=== PATIENT | female | born 1955 | race Caucasian/White ===

== ENCOUNTER 2017-10-25 08:34 | Outpatient (CLI) | payer OTHER | END 2017-10-25 08:35 | disposition home or self-care (01) | LOC: BICMAMMO 08:34 | PROVIDERS: ATTEND Family Medicine | DX: Z12.31 Encounter for screening mammogram for malignant neoplasm of breast (principal); E55.9 Vitamin D deficiency, unspecified; M81.0 Age-related osteoporosis without current pathological fracture; M85.89 Other specified disorders of bone density and structure, multiple sites | CPT/HCPCS: 77067; 77080 ==

== ENCOUNTER 2022-04-14 20:15 | Inpatient (IN) | payer MEDICARE, OTHER ==
[2022-04-14] MEDS ORDERED: Diltiazem 125 MG/25 ML ONE (20:19)
[2022-04-14] MEDS: Diltiazem 125 MG in Sodium Chloride 0.9% 100 ML IVPB SCH (20:36)
[2022-04-14 21:41] LABS: ALT (SGPT) 17 U/L (8-55); AST (SGOT) 22 U/L (5-34); Albumin 3.8 g/dL (3.4-4.8); Alkaline Phosphatase 84 U/L (40-110); Anion Gap 11 mmol/L (10-20); BUN (Urea Nitrogen) 9 mg/dL (9.8-20.1); Bilirubin, Total 0.4 mg/dL (0.2-1.2); Calc. Creatinine Clearance 0 mL/min (70-130); Calcium 10.2 mg/dL (7.8-10.44); Carbon Dioxide 22 mmol/L (23-31); Chloride 108 mmol/L (98-107); Estimated GFR 97; Globulin 2.8 g/dL (2.4-3.5); Glucose 99 mg/dL (80-115); Potassium 3.8 mmol/L (3.5-5.1); Protein, Total 6.6 g/dL (5.8-8.1); Sodium 137 mmol/L (136-145)
[2022-04-14 21:45] LABS: #Monocytes 0.7 thou/uL (0.11-0.59); #Neutrophils 5.9 thou/uL (1.40-6.50); %Basophils 0.3 % (0.0-1.0); %Eosinophils 0.3 % (0.0-10.0); %Lymphocytes 12.8 % (21.0-51.0); %Monocytes 9.1 % (0.0-10.0); %Neutrophils 77.5 % (42.0-75.0); Hemoglobin 12.3 g/dL (12.0-16.0); Mean Corpuscular HGB CONC 32.7 g/dL (32.0-36.0); Mean Corpuscular Hemoglobin 31.4 pg (27.0-31.0); Mean Corpuscular Volume 96.1 fl (78.0-98.0); Mean Platelet Volume 7.9 fL (7.4-10.4); Platelet Count 199 10x3/uL (130-400); RBC Distribution Width 11.6 % (11.5-14.5); Red Blood Cell (RBC) Count 3.91 mill/uL (4.20-5.40); White Blood Cell (WBC) Count 7.7 10x3/uL (4.8-10.8)
[2022-04-14 22:35] LABS: SARS-CoV-2 NAA Rapid Test Not Detected (NotDetected)
[2022-04-15] MEDS ORDERED: Acetaminophen 325 MG TAB PO PRN (01:09)
[2022-04-15] MEDS ORDERED: Ondansetron ODT 4 MG TAB PO PRN (01:09)
[2022-04-15] MEDS ORDERED: Ondansetron PF 4 MG/2 ML Vial IVP PRN (01:09)
[2022-04-15 02:05] LABS: Magnesium 1.5 mg/dL (1.6-2.6)
[2022-04-15] MEDS ORDERED: Magnesium 2 GM/50 ML(in water) 2 GM in Premix Bag 1 BAG IVPB SCH (02:15)
[2022-04-15] MEDS ORDERED: Electrolyte Replacement Protocol 1 EACH FS SCH (02:15)
[2022-04-15] MEDS ORDERED: Magnesium 2 GM/50 ML BAG (IN WATER) ONE (02:29)
[2022-04-15 07:56] VITALS: BMI 22.4
[2022-04-15] MEDS ORDERED: Magnesium Sulfate In Water 4 GM in Premix Bag 1 BAG IVPB SCH (08:08)
[2022-04-15] MEDS ORDERED: LISINOPRIL 30 MG PO SCH (09:00)
[2022-04-15] MEDS ORDERED: Methotrexate Sodium 2.5 MG TAB PO SCH (09:00)
[2022-04-15] MEDS ORDERED: Lisinopril 10 MG TAB PO SCH ×2 (09:00)
[2022-04-15] MEDS ORDERED: Non-Formulary Item 1 EACH (Lisinopril [Lisinopril] 30 MG Tablet) PO SCH (09:00)
[2022-04-15] MEDS: Hydroxychloroquine Sulfate 200 MG TAB PO SCH (09:34)
[2022-04-15] MEDS: Atorvastatin Calcium 20 MG TAB PO SCH (20:33)
[2022-04-15] MEDS: Diltiazem 125 MG in Sodium Chloride 0.9% 100 ML IVPB SCH (21:04)
[2022-04-16 05:09] LABS: #Eosinphils 0.1 thou/uL (0.0-0.7); #Lymphocytes 1.2 thou/uL (1.20-3.40); #Monocytes 0.6 thou/uL (0.11-0.59); #Neutrophils 3.1 thou/uL (1.40-6.50); %Basophils 0.5 % (0.0-1.0); %Eosinophils 1.4 % (0.0-10.0); %Lymphocytes 24.2 % (21.0-51.0); %Monocytes 12.3 % (0.0-10.0); %Neutrophils 61.6 % (42.0-75.0); Hemoglobin 11.1 g/dL (12.0-16.0); Mean Corpuscular Hemoglobin 32.3 pg (27.0-31.0); Mean Corpuscular Volume 97.8 fl (78.0-98.0); Mean Platelet Volume 7.8 fL (7.4-10.4); Platelet Count 184 10x3/uL (130-400); RBC Distribution Width 11.5 % (11.5-14.5); Red Blood Cell (RBC) Count 3.44 mill/uL (4.20-5.40); White Blood Cell (WBC) Count 5.1 10x3/uL (4.8-10.8)
[2022-04-16 05:34] LABS: Anion Gap 12 mmol/L (10-20); BUN (Urea Nitrogen) 14 mg/dL (9.8-20.1); Calc. Creatinine Clearance 81 mL/min (70-130); Calcium 10.5 mg/dL (7.8-10.44); Carbon Dioxide 23 mmol/L (23-31); Chloride 106 mmol/L (98-107); Estimated GFR 97; Glucose 87 mg/dL (80-115); Magnesium 1.8 mg/dL (1.6-2.6); Potassium 3.8 mmol/L (3.5-5.1); Sodium 137 mmol/L (136-145)
[2022-04-16] MEDS ORDERED: Magnesium 2 GM/50 ML(in water) 2 GM in Premix Bag 1 BAG IVPB SCH (08:00)
[2022-04-16] MEDS: Hydroxychloroquine Sulfate 200 MG TAB PO SCH (08:56)
[2022-04-16] MEDS: Amiodarone 200 MG TAB PO SCH ×2 (14:09→19:55)
[2022-04-16] MEDS: Atorvastatin Calcium 20 MG TAB PO SCH (19:55)
[2022-04-16] MEDS: Apixaban 5 MG TAB PO SCH (19:55)
[2022-04-16] MEDS ORDERED: Amiodarone 200 MG TAB PO SCH (21:00)
[2022-04-17 08:00] VITALS: BP 116/67; TEMP 97.4
[2022-04-17] MEDS: Apixaban 5 MG TAB PO SCH (08:22)
[2022-04-17] MEDS: Amiodarone 200 MG TAB PO SCH (08:22)
[2022-04-17] MEDS ORDERED: Methotrexate Sodium 2.5 MG TAB PO SCH ×2 (09:00→21:00)
== END 2022-04-17 11:50 | disposition home or self-care (01) | DRG 310 ==
LOC: ERS 20:15 → 2SW 04-15 00:36 → ERHOLD 04-15 00:41 → 2SW 04-15 07:10 → OBSVTOIN 04-16 10:58
PROVIDERS: ADMIT Internal Medicine; ATTEND Internal Medicine
DX: I48.91 Unspecified atrial fibrillation (principal); Z20.822 Contact with and (suspected) exposure to COVID-19; I08.0 Rheumatic disorders of both mitral and aortic valves; I10 Essential (primary) hypertension; E87.6 Hypokalemia; E83.42 Hypomagnesemia; M32.9 Systemic lupus erythematosus, unspecified; E78.5 Hyperlipidemia, unspecified; D53.9 Nutritional anemia, unspecified; R79.89 Other specified abnormal findings of blood chemistry; I48.4 Atypical atrial flutter; Z82.49 Family history of ischemic heart disease and other diseases of the circulatory system; Z79.899 Other long term (current) drug therapy
CPT/HCPCS: 36415; 71045; 80048; 80053; 83735; 83880; 84443; 84484; 85025; 85379; 93005; 93306; 96374; J1650; J3475; J3490